=== PATIENT | female | born 1970 | race Hispanic/Latino ===

== ENCOUNTER 2021-07-20 11:45 | Emergency (ER) | payer OTHER, SELFPAY ==
[2021-07-20 11:50] VITALS: BP 141/86; PULSE 98; RESP 17; TEMP 36.7; O2SAT 98; BMI 26.5
--- NOTE | 2021-07-20 12:38 | ED.EXTPRO ---
HPI - Extremity Problem <Ammon Dickson PA-C - Last Filed: 07/20/21 12:57> General Chief complaint: Extremity Problem,Nontraumatic Stated complaint: both legs crampring/pain/swelling Time Seen by Provider: 07/20/21 12:03 Source: patient Mode of arrival: Ambulatory Limitations: no limitations History of Present Illness HPI Narrative: Olivia presents today with chief complaint of right leg burning and pain that goes from her buttock down the back of her leg to the top of her foot. She reports that she has been having pain that has waxed and waned over the last 3 weeks, experienced a shingles rash which she gets frequently on her right buttock 1 week ago, and is continuing to have pain now. She reports that her shingles rash is mostly scabbed over and she has not had any new lesions in last few days. She denies any significant fever, difficulty walking decreased range of motion, abdominal pain, urinary symptoms, constipation, diarrhea or any other acute concerns or complaints at this time. Related Data Previous Rx's Medication Instructions Recorded gabapentin 300 mg capsule 300 mg PO BID PRN 14 Days #30 cap 07/20/21 Allergies Allergy/AdvReac Type Severity Reaction Status Date / Time ibuprofen Allergy Verified 07/20/21 11:54 Review of Systems <Ammon Dickson PA-C - Last Filed: 07/20/21 12:57> Review of Systems Narrative: As per HPI Patient History <Ammon Dickson PA-C - Last Filed: 07/20/21 12:57> Social History Smoking Status: Current some day smoker Smoking Status: Current some day smoker alcohol intake frequency: holidays/special occasions only Substance Use Type: marijuana Exam <ELIZABETH Monahan Last Filed: 07/20/21 12:57> Narrative Exam Narrative: Exam Narrative: Const General: cooperative, healthy appearing, comfortable, no acute distress, well developed and well groomed Nutritional Appearance: average body habitus Orientation: alert and oriented x3 HENMT Head: normal to inspection and atraumatic Ears: hearing grossly normal bilaterally Nose: external nose normal and nares normal Face and sinus: normal facial exam Neck Neck: normal visual inspection and supple Resp Effort & Inspection: normal respiratory effort, able to speak in complete sentences, no audible wheezes, not labored, no nasal flaring and no respiratory distress Neuro General: alert, oriented x3, gait normal, tone normal and moves all extremities Cognition: normal cognition Speech: speech normal Gait: normal gait Extremities No joint effusion lower extremities, no significant bony tenderness, no significant soft tissue tenderness. Skin Dispersed slight scabbing noted to mid lateral right buttock. [employer] present. Psych Appearance: grossly normal and well kempt Mental Status: mental status grossly normal Speech and Movement: speech and movement normal Mood: congruent mood Affect: normal affect Initial Vital Signs Initial Vital Signs: Vital Signs Temperature 98.0 F 07/20/21 11:50 Pulse Rate 98 H 07/20/21 11:50 Respiratory Rate 17 07/20/21 11:50 Blood Pressure 141/86 H 07/20/21 11:50 Pulse Oximetry 98 07/20/21 11:50 <Alban Muniz DO - Last Filed: 07/20/21 12:59> Initial Vital Signs Initial Vital Signs: Vital Signs Temperature 98.0 F 07/20/21 11:50 Pulse Rate 98 H 07/20/21 11:50 Respiratory Rate 17 07/20/21 11:50 Blood Pressure 141/86 H 07/20/21 11:50 Pulse Oximetry 98 07/20/21 11:50 Course <Ammon Dickson PA-C - Last Filed: 07/20/21 12:57> Vital Signs Vital signs: Vital Signs - 8 hr 07/20/21 11:50 Temperature 98.0 F Pulse Rate 98 H Respiratory Rate 17 Blood Pressure 141/86 H Pulse Oximetry 98 <Alban Muniz DO - Last Filed: 07/20/21 12:59> Vital Signs Vital signs: Vital Signs - 8 hr 07/20/21 11:50 Temperature 98.0 F Pulse Rate 98 H Respiratory Rate 17 Blood Pressure 141/86 H Pulse Oximetry 98 MDM - Extremity (Nontraumatic) <Ammon Dickson PA-C - Last Filed: 07/20/21 12:57> MDM Narrative Medical decision making narrative: Differential diagnosis includes low back pain with acute sciatica, polyarthralgia, fibromyalgia, rhabdomyolysis. Patient is relatively well-appearing at this time. She is not in any acute distress. She does not have any signs or symptoms that would suggest acute infection. She has a scabbed over shingles like rash to her right buttock. She has the prodromal symptoms associated with shingles and now appears to have symptoms consistent with post herpetic neuralgia. Recommend that we treat for this at this time and have her follow-up with PCP if symptoms fail to improve. ER return precautions were discussed. Patient verbalizes understanding and agrees to plan and has no further concerns at this time. Thank you A [id number] system was used with the dictation of this note. Please disregard any spelling or grammatical errors. Discharge Plan Departure Patient Disposition: Home Clinical Impression: Neuralgia, post-herpetic Activity Restrictions/Additional Instructions: It was very nice to meet you this afternoon. I suspect that your pain is caused by a condition called post-herpetic neuralgia. This is a neuropathic pain after someone experiences a shingles rash. This also explains the symptoms that you had prior to the rash. Please use the gabapentin as prescribed and follow-up with a primary care provider for any dose adjustments that may be needed. You can also take nonsteroidal anti-inflammatories or acetaminophen to help with discomfort. Thank you Ammon Dickson PA-C Prescriptions: New gabapentin 300 mg capsule 300 mg PO BID PRN (Reason: nerve pain) 14 Days Qty: 30 RF: 0 Referrals: Miscellaneous,Doctor, [Primary Care Provider] - <Alban Muniz, - Last Filed: 07/20/21 12:59> Cosign ED Attending Cosignature Attestation: Dr Muniz Co-Sign Statement: I was available for consultation during this patient's emergency department visit. This chart is signed by myself for administrative purposes only. I did not have direct contact with this patient during this visit. They were seen independently by the APC.
--- NOTE | 2021-07-20 12:44 | PC.NURSE ---
Pt c/o pins and needles, numbness, tingling in extremities. moving all extremities equally well. Unable to sit still, moving frequently. Denies trauma. [place]/warm/dry. Easy work of breathing.
== END 2021-07-20 12:46 | disposition home or self-care (01) ==
PROVIDERS: Emergency Provider Physician Assistant
DX: B02.29 Other postherpetic nervous system involvement (principal); M79.604 Pain in right leg
CPT/HCPCS: 99281

== ENCOUNTER → 2022-03-29 13:35 | Outpatient (CLI) | payer OTHER, SELFPAY ==
--- NOTE | 2022-03-29 | DI.MRI.S_ITS ---
PROCEDURE: MR LUMBAR SPINE WO CON INDICATIONS: Sciatica, right side TECHNIQUE: Noncontrast sagittal T1 spin echo and T2 fast echo, sagittal STIR, and T2 fast spin echo through the lumbar spine. In cases with scoliosis, additional coronal T2 fast spin echo may be performed. COMPARISON: None. FINDINGS: Image quality: Excellent. Alignment and Curvature: There is normal bony alignment. Bone Marrow: Marrow is of normal overall signal. No acute vertebral body compression fractures. Spinal Cord: Conus medullaris terminates at the L1 level. Visualized cord demonstrates normal signal and size. Paraspinous Soft Tissues: No paravertebral masses. T12-L1: Normal appearance. L1-L2: Normal appearance. L2-L3: Normal appearance. L3-L4: Normal appearance. L4-L5: Normal appearance. L5-S1: Normal appearance. IMPRESSION: No significant disc bulge. The foramina and central canal are patent. Normal MRI. Dictated by: Ross Kahn M.D. on 03/29/2022 at 15:10 Approved by: Ross Kahn M.D. on 03/29/2022 at 15:13
== END ==
PROVIDERS: PCP Family Medicine; Referring Provider Family Medicine; Visit Provider Family Medicine
DX: M54.31 Sciatica, right side (principal); G83.4 Cauda equina syndrome
CPT/HCPCS: 72148